=== PATIENT | male | born 1955 | race Caucasian/White ===

== ENCOUNTER 2021-12-21 01:46 | Day surgery (SDC) | payer MEDICARE, SELFPAY ==
[2021-12-04 13:28] VITALS: BMI 32.5
[2021-12-21 08:05] VITALS: BP 130/90; PULSE 59; RESP 17; TEMP 36.5; O2SAT 99
[2021-12-21] MEDS: LACTATED RINGERS 1,000 ML 150 ML IV CONT (08:13)
--- NOTE | 2021-12-21 09:16 | P.HP_ITS ---
History of Present Illness History of Present Illness Consent: Risks, benefits, and alternatives have been discussed and questions answered. Patient agrees to proceed with procedure. Chief complaint: GERD Narrative: Kevin Pham is a 66 year old male Referred for EGD. Patient reports a 15 year history of acid reflux with substernal heartburn. He feels regurgitation. Typically will occur throughout the day. Worse with coffee. Current medications included trial of Pepcid that he occasionally will take twice a day. He denies any dysphagia bleeding or weight loss. Family history noncontributory. Patient presents today for EGD to assess more thoroughly. Review of Systems Review of Systems: Review of systems noncontributory. [facility] Social History Social History Smoking status: Never smoker Alcohol intake: never Substance use: never Substance use type: does not use Living arrangements: with family Spiritual care concerns: No Meds Home Medications and Allergies Home Medications Medication Instructions Recorded Confirmed Type rosuvastatin 5 mg tablet 5 mg PO HS 12/04/21 12/21/21 History Allergies Allergy/AdvReac Type Severity Reaction Status Date / Time No Known Allergies Allergy Verified 12/21/21 08:04 Vital Signs Vital Signs - 24 hr 12/21/21 08:05 Temperature 97.7 F Pulse Rate 59 L Respiratory Rate 17 Blood Pressure 130/90 Pulse Oximetry 99 Oxygen Delivery Room Air Exam Narrative: Physical exam reveals patient be alert. Vital signs stable. HEENT exam is unremarkable. Patient is anicteric. Lungs are clear to auscultation and percussion. Heart is without murmur or extra sounds. Abdominal exam bowel sounds are present soft nontender with no organomegaly. Assessment and Plan Assessment and plan (1) GERD (gastroesophageal reflux disease): Code(s): K21.9 - Gastro-esophageal reflux disease without esophagitis Status: Acute Assessment and Plan: Patient has chronic acid reflux disease. He states he gets somewhat good recur control with Pepcid 40mg p.o. once a day occasionally twice a day. He does not take this regularly. Plan for anti-reflux measures to be in force. Avoid caffeine. Elevate head of bed at night. An EGD will be performed. Further recommendations will be given after endoscopy.
--- NOTE | 2021-12-21 09:27 | P.PNAN_ITS ---
Anes - Initial Pre Proc Eval Procedure: Operation Date: 12/21/21 09:15 Proposed Procedures p Esophagogastroduodenoscopy - Wilian Frances MD Date/Time: 12/21/21 09:27 Surgeon: Wilian Frances MD Pre Op Diagnosis: GERD Patient Data Age: 66 Gender: M Height: 1.75 m Weight: 101.3 kg Last Vital Signs Temp 97.7 F 12/21/21 08:05 Pulse 59 L 12/21/21 08:05 Resp 17 12/21/21 08:05 BP 130/90 12/21/21 08:05 Pulse Ox 99 12/21/21 08:05 O2 Del Method Room Air 12/21/21 08:05 Allergies Allergy/AdvReac Type Severity Reaction Status Date / Time No Known Allergies Allergy Verified 12/21/21 08:04 Home Medications Medication Instructions Recorded Confirmed Type rosuvastatin 5 mg tablet 5 mg PO HS 12/04/21 12/21/21 History Patient hx anesthesia problems: none Family hx anesthesia problems: none Results Review: All pre-operative results and documents have been reviewed as part of the pre- operative evaluation. PMF Social History Social History Smoking status: Never smoker Alcohol intake: never Substance use: never Substance use type: does not use Living arrangements: with family Spiritual care concerns: No Anes - Eval Final PreProcedure Day of Procedure 12/21/21 09:27 Patient weight: obese Airway: Mallampati scale ASA classification: II Anesthesia type and monitoring: general GIVS and standard monitoring Results Review: All pre-operative results and documents have been reviewed as part of the pre- operative evaluation. Informed Consent: The patient's anesthetic plan and its attendant risks and benefits were discussed with the patient/family/POA. Questions were solicited and answers provided to the satisfaction of the patient/family/POA.
[2021-12-21] MEDS: SIMETHICONE ORAL SUSPENSION 20 MG/0.3 ML 30 ML BOTTLE 0.6 ML IRRIGATION (09:59)
[2021-12-21 10:04] VITALS: BP 114/83; PULSE 53; RESP 15; O2SAT 96
[2021-12-21 10:14] VITALS: BP 113/81; PULSE 52; RESP 13; O2SAT 96
[2021-12-21 10:24] VITALS: BP 129/91; PULSE 50; RESP 15; O2SAT 99
[2021-12-21 10:34] VITALS: BP 141/90; PULSE 50; RESP 18; O2SAT 100
== END 2021-12-21 10:46 | disposition home or self-care (01) ==
PROVIDERS: PCP Physician Assistant; Visit Provider Internal Medicine Gastroenterology
PROC: 0DJ08ZZ Inspection of Upper Intestinal Tract, Via Natural or Artificial Opening Endoscopic (ICD-10-PCS; CPT 43235; principal; 2021-12-21 09:15)
DX: K21.9 Gastro-esophageal reflux disease without esophagitis (principal); E66.01 Morbid (severe) obesity due to excess calories; Z68.33 Body mass index [BMI] 33.0-33.9, adult
CPT/HCPCS: 43239; 87081; J2704; J7120

== ENCOUNTER → 2022-01-09 09:04 | Outpatient (CLI) | payer MEDICARE, SELFPAY ==
--- NOTE | ~2022-01-09 | XR_ITS ---
EXAMINATION: XR foot LT min 3V DATE: 01/09/2022 09:18 INDICATION: 2 weeks of nontraumatic metatarsal pain at the left foot TECHNIQUE: Dorsoplantar, two oblique and lateral views of the left foot were obtained. COMPARISON: None. FINDINGS: Bone alignment is normal. No fracture. Mild polyarticular osteoarthritis at the first metatarsophalan geal and several tarsal metatarsal and interphalangeal joints. No cortical erosions or periosteal shelby ction. Moderate-sized plantar calcaneal spur. Mild subcutaneous edema over the dorsum of the foot. Le sser calcific a cyst along the posterior tibial artery. IMPRESSION: 1. Mild polyarticular osteoarthritis in the mid and forefoot. No acute osseous abnormality. Reviewed, dictated and finalized at location A.
== END ==
PROVIDERS: PCP Physician Assistant; Visit Provider Physician Assistant
DX: M19.072 Primary osteoarthritis, left ankle and foot (principal)
CPT/HCPCS: 73630

== ENCOUNTER 2023-04-30 12:31 | Outpatient (RCR) | payer MEDICARE, SELFPAY ==
--- NOTE | 2023-04-30 15:17 | STOPEVDC ---
Assessment and note entered by Dina Guzman, HALL MONITOR Thank you for referring Kevin Pham to [facility].? An evaluation has been completed. No further treatment is needed. Evaluation Information Assessment Status Evaluation Reported Pain Level Pain Score 0: Self Report Assessment ST Clinical Summary VOICE EVALUATION Patient was seen for a Voice Evaluation after being diagnosed with vocal nodules by Dr. Hooker. Patient reports a history of speaking loudly and excessively and a history of gastroesophageal reflux. Patient reports that his physician felt that attending voice therapy would be beneficial in possibly reducing the vocal nodules. Today the patient responded to questions on the Voice Handicap Index (VHI) and was found that his voice disorder has a mild impact on his daily life. He reports that he has been accused of speaking too loudly, that his vocal loudness has decreased when speaking for a lengthy period of time, and that the clarity of his voice is unpredictable. Although patient states that there are no better situations for his voice, there is a disintegration of the voice with lengthy speaking situations, remaining impaired throughout that day, improving slightly by the next morning. Today the patient exhibited adequate respiration and intelligibility. He exhibited vocal loudness that was at the higher end of normal range (77-78 decibels; average normal range in Speech Therapy room is 70-74 decibels). Patient was also observed to speak almost non-stop, long enough to listen to responses to questions and instructions but otherwise he spoke frequently and constantly. Patient was instructed using written lists concerning gastroesophageal reflux (GERD) guidelines to prevent GERD and LPR, laryngopharyngeal reflux, both of which patient stated he has experienced. He was also presented with a written vocal hygiene program to assist with reducing behaviors that can lead to development of vocal nodules and increasing positive behaviors that can reduce tension/stress in the vocal cords, including avoiding excessive speaking, speaking in a loud voice, speaking over noise, and making funny sounds with the voice.
== END 2023-05-01 14:27 | disposition home or self-care (01) ==
LOC: ANHST 12:31
PROVIDERS: PCP Physician Assistant; Visit Provider Otolaryngology
DX: R49.0 Dysphonia (principal)
CPT/HCPCS: 92524

== ENCOUNTER 2024-01-20 12:44 | Outpatient (CLI) | payer MEDICARE, SELFPAY ==
--- NOTE | ~2024-01-20 | XR_ITS ---
Clinical Indication: Cough PA and lateral views of the chest: Comparison: None Findings: The lungs are clear, without evidence of focal consolidation or pleural effusion. Cardiome diastinal silhouette is within normal limits. Bones and soft tissues are unremarkable. Impression: Normal chest. Reviewed, dictated and finalized at location . Impression: Normal chest.
== END 2024-01-20 12:45 | disposition home or self-care (01) ==
PROVIDERS: PCP Physician Assistant; Visit Provider Physician Assistant
DX: R05.9 Cough, unspecified (principal)
CPT/HCPCS: 71046

== ENCOUNTER 2024-05-29 12:35 | Outpatient (CLI) | payer MEDICARE, SELFPAY ==
--- NOTE | ~2024-05-29 | CT_ITS ---
EXAMINATION: CT abdomen pelvis w con DATE: 05/29/2024 13:14 INDICATION: Periumbilical abdominal pain. TECHNIQUE: Computed tomography (CT) of the abdomen and pelvis was performed with 100 mL Omnipaque 350 intravenous contrast. Automated exposure control and iterative reconstruction technique were employe d. The dose-length product was 1024.22 mGy-cm. COMPARISON: None. FINDINGS: The visualized portions of lung bases demonstrate mild atelectasis. No pleural effusion. Th e heart size is normal. No pericardial effusion. The liver, gallbladder, spleen, pancreas, adrenal gl ands, and right kidney are normal. There are peripelvic cysts in left kidney measuring up to 2.6 cm. The prostate is mildly enlarged. There is a left inguinal hernia containing fat. There is diverticulo sis of the colon without evidence of diverticulitis. There are no dilated loops of bowel. The appendi x is normal. There are no pathologically enlarged lymph nodes. There is no free intraperitoneal fluid . There is severe thoracic and lumbar spondylosis. There is mild chronic anterior wedging of multiple vertebral bodies. IMPRESSION: 1. Left inguinal hernia containing fat. Reviewed, dictated and finalized at location A. OR CARE SPECIALIST
[2024-05-29 13:01] LABS: Estimated Glomerular Filt Rate > 60
== END 2024-05-29 12:36 | disposition home or self-care (01) ==
PROVIDERS: PCP Physician Assistant; Visit Provider Physician Assistant
DX: K40.90 Unilateral inguinal hernia, without obstruction or gangrene, not specified as recurrent (principal)
CPT/HCPCS: 74177; Q9967